=== PATIENT | male | born 1955 ===

== ENCOUNTER 2022-01-29 11:45 | Inpatient (IN) ==
[2022-01-29] MEDS ORDERED: Naloxone 0.4 MG/ML INJ IVP PRN (14:46)
[2022-01-29] MEDS ORDERED: Ondansetron 4 MG/2 ML VIAL IVP PRN (14:46)
[2022-01-29] MEDS ORDERED: Ipratropium/Albuterol Neb 3 ML IH PRN (14:48)
[2022-01-29] MEDS ORDERED: *HR* OxyCODONE Oral Soln 5 MG/5 ML UD.LIQ PO PRN (14:48)
[2022-01-29] MEDS ORDERED: Budesonide/Formoterol 160/4.5 1 PUFF INH IH ONE (19:45)
[2022-01-29] MEDS ORDERED: Tiotropium 10 INH DOSE IH ONE (19:45)
[2022-01-29] MEDS: Budesonide/Formoterol 160/4.5 1 PUFF INH IH SCH (19:54)
[2022-01-29] MEDS ORDERED: Oxymetazoline Nasal SPRAY BOTTLE 15ML NS PRN (20:02)
[2022-01-29] MEDS: Gabapentin 300 MG CAPSULE PO SCH (21:41)
[2022-01-30 06:13] LABS: Basophils # 0.1 K/mcL (0.0-0.2); Basophils % 0.5 %; Eosinophils # 0.1 K/mcL (0.0-0.6); Hematocrit 38.5 % (37.5-50.1); Hemoglobin 11.7 g/dL (12.9-16.9); Immature Granulocytes % 0.4 % (0-4); Lymphocytes # 2.2 K/mcL (0.6-4.6); Lymphocytes % 16.8 %; Mean Corpuscular HGB Conc 30.4 g/dL (31.6-35.5); Mean Corpuscular Hemoglobin 29.8 pg (28.0-33.3); Mean Corpuscular Volume 98.2 fL (83.0-100.0); Mean Platelet Volume 10.9 fL (9.4-12.4); Monocytes # 1.4 K/mcL (0.0-1.3); Monocytes % 10.7 %; Neutrophils # 9.3 K/mcL (1.6-8.9); Platelet Count 237 K/mcL (140-400); Red Blood Count 3.92 M/mcL (4.19-5.50); Red Cell Distribution Width 13.4 % (11.5-14.5); Segmented Neutrophils % 70.6 %; White Blood Count 13.2 K/mcL (4.3-11.1)
[2022-01-30 07:23] LABS: BUN/Creatinine Ratio 21 (6-26); Blood Urea Nitrogen 13 mg/dL (8-23); Calcium 9.3 mg/dL (8.6-10.3); Carbon Dioxide 42 mEq/L (23-29); Chloride 92 mEq/L (98-107); Glucose 67 mg/dL (70-105); Magnesium 2.2 mg/dL (1.6-2.6); Osmolality,Calculated 288 (280-300); Potassium 4.6 mEq/L (3.5-5.1); Sodium 140 mEq/L (136-145); eGFR For African Americans > 60 (> 60); eGFR For Non-African Americans > 60 (> 60)
[2022-01-30] MEDS: Budesonide/Formoterol 160/4.5 1 PUFF INH IH SCH ×2 (07:35→20:22)
[2022-01-30] MEDS: Gabapentin 300 MG CAPSULE PO SCH ×3 (07:53→20:11)
[2022-01-30] MEDS ORDERED: CeFAZolin Syr 2,000MG/20 ML 2,000 MG/20 ML SYRINGE IVPB ONE (08:26)
[2022-01-30] MEDS ORDERED: Ringers Solution, Lactated 1,000 ML IVC SCH ×2 (08:30→12:02)
[2022-01-30] MEDS ORDERED: *HR* FentaNYL (PF) 100 MCG/2 ML VIAL IVP PRN (08:35)
[2022-01-30] MEDS ORDERED: Albuterol 2.5 MG/3 ML NEBULIZER IH PRN (08:35)
[2022-01-30] MEDS ORDERED: *HR* HYDROmorphone PF 0.5 MG/0.5 ML SYRINGE IVP PRN (08:35)
[2022-01-30] MEDS ORDERED: *HR* Midazolam HCl 2 MG/2 ML VIAL ONE (08:51)
[2022-01-30] MEDS ORDERED: *HR* FentaNYL (PF) 100 MCG/2 ML VIAL ONE (08:51)
[2022-01-30] MEDS ORDERED: Roflumilast [Daliresp] 500 MCG Tablet PO SCH (09:00)
[2022-01-30] MEDS ORDERED: *HR* Propofol 200 MG/20 ML VIAL IVP ONE (09:56)
[2022-01-30] MEDS ORDERED: Tiotropium 10 INH DOSE IH SCH (10:00)
[2022-01-30] MEDS ORDERED: Acetaminophen 325 MG TABLET PO SCH (12:00)
[2022-01-30] MEDS ORDERED: Ipratropium/Albuterol Neb 3 ML IH PRN (12:02)
[2022-01-30] MEDS ORDERED: Oxymetazoline Nasal SPRAY BOTTLE 15ML NS PRN (12:02)
[2022-01-30] MEDS ORDERED: Ondansetron 4 MG/2 ML VIAL IVP PRN (12:02)
[2022-01-30] MEDS ORDERED: *HR* OxyCODONE Oral Soln 5 MG/5 ML UD.LIQ PO PRN (12:02)
[2022-01-30] MEDS ORDERED: Naloxone 0.4 MG/ML INJ IVP PRN (12:02)
[2022-01-30] MEDS: CeFAZolin 2 GM/120 ML BAG IVPB SCH (15:45)
[2022-01-30] MEDS ORDERED: Ketorolac 30 MG/ML VIAL IVP ONE (20:26)
[2022-01-30] MEDS ORDERED: diazePAM 10 MG TABLET PO PRN (20:27)
[2022-01-30] MEDS: *HR* OxyCODONE Immed Rel 5 MG TABLET PO PRN (20:53)
[2022-01-31] MEDS: CeFAZolin 2 GM/120 ML BAG IVPB SCH (00:23)
[2022-01-31 02:18] LABS: Basophils # 0.1 K/mcL (0.0-0.2); Basophils % 0.4 %; Eosinophils # 0.3 K/mcL (0.0-0.6); Eosinophils % 2.3 %; Hematocrit 34.1 % (37.5-50.1); Hemoglobin 10.3 g/dL (12.9-16.9); Immature Granulocytes % 0.4 % (0-4); Lymphocytes # 3.5 K/mcL (0.6-4.6); Lymphocytes % 26.6 %; Mean Corpuscular HGB Conc 30.2 g/dL (31.6-35.5); Mean Corpuscular Hemoglobin 29.9 pg (28.0-33.3); Mean Corpuscular Volume 98.8 fL (83.0-100.0); Mean Platelet Volume 10.9 fL (9.4-12.4); Monocytes # 1.4 K/mcL (0.0-1.3); Monocytes % 10.5 %; Neutrophils # 7.9 K/mcL (1.6-8.9); Platelet Count 221 K/mcL (140-400); Red Blood Count 3.45 M/mcL (4.19-5.50); Red Cell Distribution Width 13.2 % (11.5-14.5); Segmented Neutrophils % 59.8 %; White Blood Count 13.2 K/mcL (4.3-11.1)
[2022-01-31 02:41] LABS: Alanine Aminotransferase 5 Units/L (7-52); Albumin 3.2 g/dL (3.5-5.7); Albumin/Globulin Ratio 1.3 (1.1-2.2); Alkaline Phosphatase 69 Units/L (34-104); Aspartate Amino Transferase 9 Units/L (13-39); BUN/Creatinine Ratio 25 (6-26); Bilirubin,Total 0.4 mg/dL (0.3-1.0); Blood Urea Nitrogen 19 mg/dL (8-23); Calcium 8.3 mg/dL (8.6-10.3); Carbon Dioxide 43 mEq/L (23-29); Chloride 94 mEq/L (98-107); Globulin 2.4 g/dL (2.4-3.5); Glucose 77 mg/dL (70-105); Osmolality,Calculated 287 (280-300); Potassium 4.5 mEq/L (3.5-5.1); Sodium 138 mEq/L (136-145); Total Protein 5.6 g/dL (6.4-8.9); eGFR For African Americans > 60 (> 60); eGFR For Non-African Americans > 60 (> 60)
[2022-01-31] MEDS: *HR* OxyCODONE Immed Rel 5 MG TABLET PO PRN ×3 (05:43→22:11)
[2022-01-31] MEDS ORDERED: *HR* Enoxaparin 40 MG/0.4 ML SYRINGE SQ SCH (06:00)
[2022-01-31] MEDS: Roflumilast [Daliresp] 500 MCG Tablet PO SCH (09:30)
[2022-01-31] MEDS: Gabapentin 300 MG CAPSULE PO SCH ×3 (09:30→20:27)
[2022-01-31] MEDS: Budesonide/Formoterol 160/4.5 1 PUFF INH IH SCH ×2 (11:37→21:06)
[2022-01-31] MEDS: Tiotropium 10 INH DOSE IH SCH (11:38)
[2022-02-01] MEDS: *HR* OxyCODONE Immed Rel 5 MG TABLET PO PRN ×3 (06:41→15:13)
[2022-02-01] MEDS: Tiotropium 10 INH DOSE IH SCH (08:09)
[2022-02-01] MEDS: Budesonide/Formoterol 160/4.5 1 PUFF INH IH SCH (08:09)
[2022-02-01] MEDS: Gabapentin 300 MG CAPSULE PO SCH ×2 (08:45→15:13)
[2022-02-01] MEDS: Roflumilast [Daliresp] 500 MCG Tablet PO SCH (08:45)
[2022-02-01 10:14] LABS: Influenza A PCR Negative (Negative); Influenza B PCR Negative (Negative); Resp. Syncytial Virus PCR Negative (Negative)
[2022-02-01 10:19] LABS: SARS-CoV-2 by PCR (In House) Negative (Negative)
[2022-02-01 11:07] VITALS: BP 122/78; PULSE 74; TEMP 97.6; O2SAT 95
== END 2022-02-01 16:27 | disposition other institution (70) | DRG 481 ==
LOC: 4WAOSI → SUATTDRO 16:43
PROVIDERS: ADMIT Family Medicine; ATTEND Family Medicine